=== PATIENT | female | born 1945 | race Caucasian/White ===

== ENCOUNTER 2017-05-31 11:11 | Emergency (ER) | payer MEDICARE, OTHER ==
--- NOTE | 2017-05-31 12:25 | ED Physician Documentation ---
PD HPI URI - Stated complaint Stated Complaint: COUGH/RUNNY NOSE - Chief complaint Chief Complaint: Resp - History obtained from History obtained from: Patient - History of Present Illness Timing - onset: Other (Relatively healthy 71-year-old [place]. Her son is admitted in the hospital right now with influenza and pneumonia. She developed a runny nose and dry cough yesterday, not associated with chills, fevers, or body aches. There is no nausea or rash.) Review of Systems Constitutional: denies: Fever, Chills, Myalgias, Fatigue Ears: denies: Ear pain Nose: reports: Rhinorrhea / runny nose, Congestion. denies: Sinus pressure / pain Throat: denies: Sore throat Respiratory: reports: Cough. denies: Dyspnea GI: denies: Abdominal Pain PD PAST MEDICAL HISTORY - Past Medical History Cardiovascular: Hypertension, High cholesterol - Past Surgical History Past Surgical History: Yes HEENT: Cataracts - Present Medications Home Medications: Ambulatory Orders Medication Instructions Recorded Confirmed Aspirin 325 mg PO DAILY 05/31/17 05/31/17 Oseltamivir [Tamiflu] 75 mg PO BID #10 capsule 05/31/17 Potassium Chloride [K-Dur] 20 meq PO DAILY 05/31/17 05/31/17 Rosuvastatin Calcium [Crestor] 20 mg PO DAILY 05/31/17 05/31/17 amLODIPine [Norvasc] 5 mg PO DAILY 05/31/17 05/31/17 hydroCHLOROthiazide 25 mg PO DAILY 05/31/17 05/31/17 [Hydrochlorothiazide] - Allergies Allergies/Adverse Reactions: Allergies Allergy/AdvReac Type Severity Reaction Status Date / Time Penicillins Allergy Rash Verified 05/31/17 11:33 - Social History Does the pt smoke?: No Smoking Status: Never smoker Does the pt drink ETOH?: No Does the pt have substance abuse?: No - Immunizations Immunizations are current?: Yes PD ED PE NORMAL - Vitals Vital signs reviewed: Yes - General General: Alert and oriented X 3, No acute distress - HEENT HEENT: PERRL, EOMI, Ears normal - Neck Neck: Supple, no meningeal sign, No bony TTP - Cardiac Cardiac: RRR, No murmur - Respiratory Respiratory: No respiratory distress, Other (Mild expiratory wheezes, excellent air motion. No focal findings.) - Abdomen Abdomen: Non tender - Neuro Neuro: Alert and oriented X 3, Normal speech - Psych Psych: Normal mood, Normal affect Results - Vitals Vitals: Vital Signs - 24 hr 05/31/17 11:31 Temperature 37.4 C Heart Rate 67 Respiratory 16 Rate Blood Pressure 155/80 H O2 Saturation 98 Oxygen O2 Source Room air - Labs Labs: Laboratory Tests 05/31/17 12:11 Influenza A (Rapid) POSITIVE H Influenza B (Rapid) Negative Influenza Types A,B Ag + H - Rads (name of study) 2v chest Radiology: EMP read contemporaneously (NAD) Departure - Departure Disposition: Home, Self Care Clinical Impression: Influenza A Condition: Good Record reviewed to determine appropriate education?: Yes Instructions: ED Flu, Medication: Tamiflu (Oseltamivir) Prescriptions: Oseltamivir [Tamiflu] 75 mg PO BID #10 capsule Comments: [place] pharmacy [place] is [facility] in [place], it [place] [address] at [address] [place], [address]. Their phone number is [phone]. I think they are open until 9 tonight.
[2017-05-31] MEDS ORDERED: OSELTAMIVIR 75 MG CAPSULE PO STA (12:51)
--- NOTE | 2017-05-31 13:25 | XRAY Report ---
EXAM: CHEST RADIOGRAPHY EXAM DATE: 05/31/2017 12:49 PM. CLINICAL HISTORY: Cough. COMPARISON: None available. TECHNIQUE: 2 views. FINDINGS: Lungs/Pleura: There are chronic appearing interstitial markings. There is a nodular density medially in the left lung which appears to represent a vessel viewed on end. No acute infiltrate or consolidat ion appreciated. No pneumothorax or pleural effusion. Mediastinum: Borderline to mildly enlarged cardiac silhouette. Atherosclerotic calcification in the a ortic arch. Questionable mild bilateral hilar fullness. Other: No acute skeletal abnormalities are appreciated. IMPRESSION: No definite acute abnormality. [facility] Referring Provider Line: [phone] SITE ID: [id number]
[2017-05-31 13:42] VITALS: BP 115/79
[2017-05-31] MEDS ORDERED: ACETAMINOPHEN 325 MG TABLET PO STA (13:42)
== END 2017-05-31 13:45 | disposition home or self-care (01) ==
LOC: ED 11:11
DX: J09.X2 Influenza due to identified novel influenza A virus with other respiratory manifestations (principal); I10 Essential (primary) hypertension; E78.00 Pure hypercholesterolemia, unspecified; Z79.82 Long term (current) use of aspirin
CPT/HCPCS: 71020; 87275; 87276; 99283; A9270